=== PATIENT | male | born 1945 | race Caucasian/White ===

== ENCOUNTER 2022-09-03 10:11 | Emergency (ER) | payer MEDICARE ==
[~2022-09-03] VITALS: Ht 177.8 cm; Wt 86.0 kg
[2022-09-03] MEDS ORDERED: BAYER CHEWABLE81 MG PO (10:33)
[2022-09-03] MEDS ORDERED: METOPROLOL SUCC25 MG PO (10:34)
[2022-09-03] MEDS ORDERED: CHLORDIAZEPOXID25 MG PO (15:06)
[2022-09-03 15:20] VITALS: BP 141/99
--- NOTE | 2022-09-03 16:10 | EKG ---
[facility] [address] [facility] [place] [address] Signed Atrial fibrillation with rapid ventricular response Left anterior fascicular block Cannot rule out Inferior infarct (masked by fascicular block?) , age undetermined Abnormal ECG No previous ECGs available Confirmed by Rubén Rutledge MD () on 09/03/2022 4:10:09 PM Electronically Signed By: RUBÉN RUTLEDGE MD 09/03/22 1610 PATIENT NAME: RODRIGUEZ LO Electrocardiogram DATE OF : 49 PHYSICIAN: RUBÉN RUTLEDGE MD REPORT #: [id number] REPORT IS CONFIDENTIAL AND NOT TO BE RELEASED WITHOUT AUTHORIZATION
[2022-09-04] MEDS ORDERED: CHLORDIAZEPOXID25 MG PO (08:51)
[2022-09-04] MEDS ORDERED: MAGNESIUM400 M1 PO (18:37)
[2022-09-04] MEDS ORDERED: MULTIVITAMINS1 EAC8 PO (18:37)
== END 2022-09-03 15:20 | disposition home or self-care (01) ==
LOC: ED 10:11
DX: F10.90 Alcohol use, unspecified, uncomplicated (principal); I48.91 Unspecified atrial fibrillation; Z79.82 Long term (current) use of aspirin; Z79.899 Other long term (current) drug therapy
CPT/HCPCS: 36415; 80053; 81001; 82010; 82803; 85025; 93005; 93010; 96365; 96375; 99284-25; G0480; J2060; J3411

== ENCOUNTER 2022-09-03 19:15 | Emergency (ER) | payer MEDICARE ==
[~2022-09-03] VITALS: Ht 177.8 cm; Wt 86.0 kg
[~2022-09-03 19:15] MED LIST: BAYER CHEWABLE81 MG PO; CHLORDIAZEPOXID25 MG PO; METOPROLOL SUCC25 MG PO
--- OUTSIDE RECORDS SUMMARY | 2022-09-03 19:22 | XMS ---
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 VISIT COUNT (12 MO.) 2 [facility] TOTAL 2 NOTE: Visits indicate total known visits. ED/UCC VISIT TRACKING (12 MO.) 09/03/2022 19:16 [facility] [place] TYPE: Emergency COMPLAINT: - WEAKNESS 09/03/2022 10:11 [facility] [place] TYPE: Emergency COMPLAINT: - WEAKNESS INPATIENT VISIT TRACKING (12 MO.) No inpatient visits to display in this time frame [email or web address]
[2022-09-04] MEDS ORDERED: CHLORDIAZEPOXID25 MG PO (08:51)
[2022-09-04 09:14] VITALS: BP 148/68
--- NOTE | 2022-09-04 15:08 | EKG ---
[facility] [address] [facility] [place] [address] Signed Atrial fibrillation with rapid ventricular response Left anterior fascicular block Cannot rule out Inferior infarct (cited on or before 03-SEP-2022) Abnormal ECG When compared with ECG of 03-SEP-2022 10:26, No significant change was found Confirmed by JAMIE KO MD ([id number]) on 09/04/2022 3:07:42 PM Electronically Signed By: JAMIE KO MD 09/04/22 1508 PATIENT NAME: RODRIGUEZ LO Electrocardiogram DATE OF : 49 PHYSICIAN: JAMIE KO MD REPORT #: [id number] REPORT IS CONFIDENTIAL AND NOT TO BE RELEASED WITHOUT AUTHORIZATION
[2022-09-04] MEDS ORDERED: MULTIVITAMINS1 EAC8 PO (18:37)
[2022-09-04] MEDS ORDERED: MAGNESIUM400 M1 PO (18:37)
== END 2022-09-04 09:10 | disposition home or self-care (01) ==
LOC: ED 19:15
DX: R53.1 Weakness (principal); Z79.82 Long term (current) use of aspirin; Z79.899 Other long term (current) drug therapy
CPT/HCPCS: 36415; 80048; 80053; 81001; 83735; 84484; 85025; 93005; 93010; G0480; J2060; J3475; J7030

== ENCOUNTER 2022-09-04 14:29 | Emergency (ER) | payer MEDICARE ==
[~2022-09-04] VITALS: Ht 177.8 cm; Wt 86.0 kg
--- OUTSIDE RECORDS SUMMARY | 2022-09-04 14:43 | XMS ---
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 VISIT COUNT (12 MO.) [address] [place] [address] TOTAL 3 NOTE: Visits indicate total known visits. ED/UCC VISIT TRACKING (12 MO.) 09/04/2022 14:29 [facility] TYPE: Emergency COMPLAINT: - WEAKNESS 09/03/2022 19:16 [facility] TYPE: Emergency COMPLAINT: - WEAKNESS 09/03/2022 10:11 [facility] TYPE: Emergency COMPLAINT: - WEAKNESS INPATIENT VISIT TRACKING (12 MO.) No inpatient visits to display in this time frame [email or web address]
[2022-09-04] MEDS ORDERED: MULTIVITAMINS1 EAC8 PO (18:37)
[2022-09-04] MEDS ORDERED: MAGNESIUM400 M1 PO (18:37)
[2022-09-04 18:51] VITALS: BP 144/98
--- NOTE | 2022-09-05 23:58 | EKG ---
[facility] [address] [facility] [place], [place] [address] Signed Atrial fibrillation with rapid ventricular response Left axis deviation Inferior infarct (cited on or before 03-SEP-2022) Abnormal ECG When compared with ECG of 03-SEP-2022 20:37, No significant change was found Confirmed by JAMIE KO MD ([id number]) on 09/05/2022 11:58:33 PM Electronically Signed By: JAMIE KO MD 09/05/22 2358 PATIENT NAME: RODRIGUEZ LO Electrocardiogram DATE OF : 49 PHYSICIAN: JAMIE KO MD REPORT #: [id number] REPORT IS CONFIDENTIAL AND NOT TO BE RELEASED WITHOUT AUTHORIZATION
== END 2022-09-04 18:51 | disposition home or self-care (01) ==
LOC: ED 14:29
DX: I48.91 Unspecified atrial fibrillation (principal); F10.939 Alcohol use, unspecified with withdrawal, unspecified; E83.42 Hypomagnesemia; Z79.82 Long term (current) use of aspirin; Z79.899 Other long term (current) drug therapy
CPT/HCPCS: 36415; 80053; 83735; 84484; 85025; 93005; 93010; J2060; J3475; J7030

== ENCOUNTER → 2022-12-21 | Emergency (ER) | payer MEDICARE ==
[~2022-12-21] VITALS: Ht 177.8 cm; Wt 84.2 kg
[~2022-12-21] MED LIST changes: +MAGNESIUM400 M1 PO; +MULTIVITAMINS1 EAC8 PO
--- OUTSIDE RECORDS SUMMARY | ~2022-12-21 | XMS | Continuity of Care Document ---
Demographics + + + | Address | [address] | | | [place] [address] | + + + | Preferred Language | Unknown | + + + | Marital Status | | + + + | Mosque Affiliation | Unknown | + + + | Race | White | + + + | Ethnic Group | Not or | + + + Author + + + | Author | [facility] | + + + | Organization | [facility] | + + + | Address | [address] | | | [place] [address] | + + + | Phone | | + + + Care Team Providers + + + + | [employer] Director Name | Role | Phone | + + + + Unavailable | Unavailable | + + + + Unavailable | Unavailable | + + + + Unavailable | Unavailable | + + + + Unavailable | Unavailable | + + + + Allergies and Intolerances + + + + + + | date | description | facility | reaction | severity | + + + + + + | (no date) | No Known Drug | [facility] | (no reaction) | (no severity) | | | Allergies | | | | + + + + + + Encounters No information. Functional Status No information. Immunizations No information. Medications + + + + | date | description | facility | + + + + | 2022-09-04 00:00 | MAGNESIUM OXIDE | [facility] | + + + + | 2022-09-03 00:00 | ASPIRIN | [facility] | + + + + | 2022-09-04 00:00 | ASPIRIN | [facility] | + + + + | 2022-09-04 00:00 | ASPIRIN | [facility] | + + + + | 2022-09-03 00:00 | METOPROLOL SUCCINATE | [facility] | + + + + | 2022-09-04 00:00 | METOPROLOL SUCCINATE | [facility] | + + + + | 2022-09-04 00:00 | METOPROLOL SUCCINATE | [facility] | + + + + | 2022-09-03 00:00 | CHLORDIAZEPOXIDE HCL | [facility] | + + + + | 2022-09-03 00:00 | CHLORDIAZEPOXIDE HCL | [facility] | + + + + | 2022-09-03 00:00 | CHLORDIAZEPOXIDE HCL | [facility] | + + + + | 2022-09-04 00:00 | CHLORDIAZEPOXIDE HCL | [facility] | + + + + | 2022-09-04 00:00 | CHLORDIAZEPOXIDE HCL | [facility] | + + + + Problems + + + + | date | description | facility | + + + + | 2022-09-03 00:00 | Alcohol use disorder | [facility] | + + + + | 2022-09-03 00:00 | Alcohol use disorder | [facility] | + + + + | 2022-09-03 00:00 | Alcohol use disorder | [facility] | + + + + | 2022-09-03 00:00 | Atrial fibrillation | [facility] | + + + + | 2022-09-03 00:00 | Atrial fibrillation | [facility] | + + + + | 2022-09-03 00:00 | Atrial fibrillation | 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 | + + + + | 2022-09-04 00:00 | Alcohol withdrawal | [facility] | | | syndrome | | + + + + | 2022-09-04 00:00 | Atrial fibrillation with | [facility] | | | rapid ventricular response | | + + + + | 2022-09-04 00:00 | Generalized weakness | [facility] | + + + + | 2022-09-04 00:00 | Generalized weakness | 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 Results/Labs +--------+--------+ +---------+--------+---------+ | test | date | facility | value | unit | notes | +--------+--------+ +---------+--------+---------+ + + | Result panel 1 | + + + + + +--------+ + + | | 2022-09-03 | [facility] | 13.0 | (missing) | (missing) | | (unavailable | [facility] | | | + + + +--------+ + + + + | Result panel 2 | + + + + + +--------+ + + | | 2022-09-03 | [facility] | 75.1 | (missing) | (missing) | | (unavailable | [facility] | | | + + + +--------+ + + + + | Result panel 3 | + + + + + +--------+ + + | | 2022-09-03 | [facility] | 21.0 | (missing) | (missing) | | (unavailable | [facility] | | | + + + +--------+ + + + + | Result panel 4 | + + + + + + + + + | | 2022-09-03 | [facility] | NEGATIVE | (missing) | (missing) | | (unavailable | [facility]:16: [facility] | | | + + + + + + + + + | Result panel 5 | + + + + + +-------+ + + | | 2022-09-03 | [facility] | 3.1 | (missing) | (missing) | | (unavailable | [facility] | | | + + + +-------+ + + + + | Result panel 6 | + + + + + +-------+ + + | | 2022-09-03 | [facility] | 0.2 | (missing) | (missing) | | (unavailable | [facility]16[facility] | | | + + + +-------+ + + + + | Result panel 7 | + + + + + +-------+ + + | | 2022-09-03 | [facility] | 0.6 | (missing) | (missing) | | (unavailable | [facility] | | | + + + +-------+ + + + + | Result panel 8 | + + + + + + + + + | | 2022-09-03 | [facility] | NEGATIVE | (missing) | (missing) | | (unavailable | [facility] | | | + + + + + + + + + | Result panel 9 | + + + + + +--------+ + + | | 2022-09-03 | [facility] | 5.34 | (missing) | (missing) | | (unavailable | [facility] | | | + + + +--------+ + + + + | Result panel 10 | + + + + + +--------+ + + | | 2022-09-03 | [facility] | 17.3 | (missing) | (missing) | | (unavailable | [facility] | | | + + + +--------+ + + + + | Result panel 11 | + + + + + +------+---------+ + | | 2022-09-03 | [facility] | 72 | mg/dL | (missing) | | (unavailable | [facility] | | | + + + +------+---------+ + + + | Result panel 12 | + + + + + +------+---------+ + | | 2022-09-03 | [facility] | 18 | mg/dL | (missing) | | (unavailable | [facility] | | | + + + +------+---------+ + + + | Result panel 13 | + + + + + +--------+---------+ + | | 2022-09-03 | [facility] | 0.98 | mg/dL | (missing) | | (unavailable | [facility] | | | + + + +--------+---------+ + + + | Result panel 14 | + + + + + +--------+ + + | | 2022-09-03 | [facility] | 51.6 | (missing) | (missing) | | (unavailable | [facility] | | | + + + +--------+ + + + + | Result panel 15 | + + + + + +------+ + + | | 2022-09-03 | [facility] | 81 | (missing) | (missing) | | (unavailable | [facility] | | | + + + +------+ + + + + | Result panel 16 | + + + + + +---------+ + + | | 2022-09-03 | [facility] | 18.36 | (missing) | (missing) | | (unavailable | [facility] | | | + + + +---------+ + + + + | Result panel 17 | + + + + + +-------+ + + | | 2022-09-03 | [facility] | 142 | (missing) | (missing) | | (unavailable | [facility] | | | + + + +-------+ + + + + | Result panel 18 | + + + + + +-------+ + + | | 2022-09-03 | [facility] | 3.7 | (missing) | (missing) | | (unavailable | [facility] | | | + + + +-------+ + + + + | Result panel 19 | + + + + + +-------+ + + | | 2022-09-03 | [facility] | 101 | (missing) | (missing) | | (unavailable | [facility] | | | + + + +-------+ + + + + | Result panel 20 | + + + + + +------+ + + | | 2022-09-03 | [facility] | 20 | (missing) | (missing) | | (unavailable | [facility] | | | | + + + +------+ + + + + | Result panel 21 | + + + + + +--------+ + + | | 2022-09-03 | [facility] | 24.7 | (missing) | (missing) | | (unavailable | [facility] | | | + + + +--------+ + + + + | Result panel 22 | + + + + + +-------+---------+ + | | 2022-09-03 | [facility] | 8.6 | mg/dL | (missing) | | (unavailable | [facility] | | | + + + +-------+---------+ + + + | Result panel 23 | + + + + + +-------+ + + | | 2022-09-03 | [facility] | 7.8 | (missing) | (missing) | | (unavailable | [facility] | | | + + + +-------+ + + + + | Result panel 24 | + + + + + +-------+ + + | | 2022-09-03 | [facility] | 3.7 | (missing) | (missing) | | (unavailable | [facility] | | | + + + +-------+ + + + + | Result panel 25 | + + + + + +--------+ + + | | 2022-09-03 | [facility] | 96.7 | (missing) | (missing) | | (unavailable | [facility] | | | + + + +--------+ + + + + | Result panel 26 | + + + + + +-------+ + + | | 2022-09-03 | [facility] | 4.1 | (missing) | (missing) | | (unavailable | [facility] | | | + + + +-------+ + + + + | Result panel 27 | + + + + + +--------+ + + | | 2022-09-03 | [facility] | 0.90 | (missing) | (missing) | | (unavailable | [facility] | | | + + + +--------+ + + + + | Result panel 28 | + + + + + +-------+ + + | | 2022-09-03 | [facility] | 0.6 | (missing) | (missing) | | (unavailable | [facility] | | | + + + +-------+ + + + + | Result panel 29 | + + + + + +------+ + + | | 2022-09-03 | [facility] | 65 | (missing) | (missing) | | (unavailable | [facility] | | | + + + +------+ + + + + | Result panel 30 | + + + + + +------+ + + | | 2022-09-03 | [facility] | 59 | (missing) | (missing) | | (unavailable | [facility] | | | + + + +------+ + + + + | Result panel 31 | + + + + + +------+ + + | | 2022-09-03 | [facility] | 68 | (missing) | (missing) | | (unavailable | [facility] | | | + + + +------+ + + + + | Result panel 32 | + + + + + + + + + | | 2022-09-03 | [facility] | NEGATIVE | (missing) | (missing) | | (unavailable | [facility] | | | + + + + + + + + + | Result panel 33 | + + + + + +-------+ + + | | 2022-09-03 | [facility] | 177 | (missing) | (missing) | | (unavailable | [facility] | | | + + + +-------+ + + + + | Result panel 34 | + + + + + +--------+ + + | | 2022-09-03 | [facility] | 32.3 | (missing) | (missing) | | (unavailable | [facility] | | | + + + +--------+ + + + + | Result panel 35 | + + + + + +--------+ + + | | 2022-09-03 | [facility] | 33.4 | (missing) | (missing) | | (unavailable | [facility] | | | + + + +--------+ + + + + | Result panel 36 | + + + + + +--------+ + + | | 2022-09-03 | [facility] | 15.6 | (missing) | (missing) | | (unavailable | [facility] | | | + + + +--------+ + + + + | Result panel 37 | + + + + + +-------+ + + | | 2022-09-03 | [facility] | 207 | (missing) | (missing) | | (unavailable | [facility] | | | + + + +-------+ + + + + | Result panel 38 | + + + + + +---------+ + + | | 2022-09-03 | [facility] | 7.263 | (missing) | (missing) | | (unavailable | [facility]36[facility]07 [facility] | | | + + + +---------+ + + + + | Result panel 39 | + + + + + +---------+ + + | | 2022-09-03 | [facility] | 7.263 | (missing) | (missing) | | (unavailable | [facility] | | | + + + +---------+ + + + + | Result panel 40 | + + + + + +---------+ + + | | 2022-09-03 | [facility] | 7.263 | (missing) | (missing) | | (unavailable | [facility]36[facility]07 [facility] | | | + + + +---------+ + + + + | Result panel 41 | + + + + + +------+ + + | | 2022-09-03 | [facility] | 73 | (missing) | (missing) | | (unavailable | [facility]38:07 [facility] | | | + + + +------+ + + + + | Result panel 42 | + + + + + +------+ + + | | 2022-09-03 | [facility] | 73 | (missing) | (missing) | | (unavailable | [facility]38:07 [facility] | | | + + + +------+ + + + + | Result panel 43 | + + + + + +------+ + + | | 2022-09-03 | [facility] | 73 | (missing) | (missing) | | (unavailable | [facility]38:07 [facility] | | | + + + +------+ + + + + | Result panel 44 | + + + + + + + + + | | 2022-09-03 | [facility] | CLEAN CATCH | (missing) | (missing) | | (unavailable | [facility]15:07 [facility] | | | + + + + + + + + + | Result panel 45 | + + + + + + + + + | | 2022-09-03 | [facility] | CLEAN CATCH | (missing) | (missing) | | (unavailable | [facility] | | | + + + + + + + + + | Result panel 46 | + + + + + + + + + | | 2022-09-03 | [facility] | YELLOW | (missing) | (missing) | | (unavailable | [facility] | | | + + + + + + + + + | Result panel 47 | + + + + + +---------+ + + | | 2022-09-03 | [facility] | CLEAR | (missing) | (missing) | | (unavailable | [facility]07 [facility] | | | + + + +---------+ + + + + | Result panel 48 | + + + + + + + + + | | 2022-09-03 | [facility] | NEGATIVE | (missing) | (missing) | | (unavailable | [facility] | | | + + + + + + + + + | Result panel 49 | + + + + + + + + + | | 2022-09-03 | [facility] | NEGATIVE | (missing) | (missing) | | (unavailable | [facility] | | | + + + + + + + + + | Result panel 50 | + + + + + +---------+ + + | | 2022-09-03 | [facility] | SMALL | (missing) | (missing) | | (unavailable | [facility]15:07 [facility] | | | + + + +---------+ + + + + | Result panel 51 | + + + + + + + + + | | 2022-09-03 | [facility] | >=1.030 | (missing) | (missing) | | (unavailable | [facility]07 [facility] | | | + + + + + + + + + | Result panel 52 | + + + + + +---------+ + + | | 2022-09-03 | [facility] | SMALL | (missing) | (missing) | | (unavailable | [facility]:07 [facility] | | | + + + +---------+ + + + + | Result panel 53 | + + + + + +-------+ + + | | 2022-09-03 | [facility] | 5.5 | (missing) | (missing) | | (unavailable | [facility]07 [facility] | | | + + + +-------+ + + + + | Result panel 54 | + + + + + +-------+ + + | | 2022-09-03 | [facility] | 100 | (missing) | (missing) | | (unavailable | [facility]:07 [facility] | | | + + + +-------+ + + + + | Result panel 55 | + + + + + + + + + | | 2022-09-03 | [facility] | NORMAL | (missing) | (missing) | | (unavailable | [facility]07 [facility] | | | + + + + + + + + + | Result panel 56 | + + + + + + + + + | | 2022-09-03 | [facility] | NEGATIVE | (missing) | (missing) | | (unavailable | [facility]07 [facility] | | | + + + + + + + + + | Result panel 57 | + + + + + + + + + | | 2022-09-03 | [facility] | NEGATIVE | (missing) | (missing) | | (unavailable | 12::07 [facility] | | | + + + + + + + + + | Result panel 58 | + + + + + +-------+ + + | | 2022-09-03 | [facility] | 2-3 | (missing) | (missing) | | (unavailable | [facility]15:07 [facility] | | | + + + +-------+ + + + + | Result panel 59 | + + + + + +-------+ + + | | 2022-09-03 | [facility] | 0-1 | (missing) | (missing) | | (unavailable | 12::07 [facility] | | | + + + +-------+ + + + + | Result panel 60 | + + + + + +-----+ + + | | 2022-09-03 | [facility] | 0 | (missing) | (missing) | | (unavailable | [facility]15:07 [facility] | | | + + + +-----+ + + + + | Result panel 61 | + + + + + + + + + | | 2022-09-03 | [facility] | NONE SEEN | (missing) | (missing) | | (unavailable | [facility]15[facility]07 [facility] | | | + + + + + + + + + | Result panel 62 | + + + + + +--------+ + + | | 2022-09-03 | [facility] | RARE | (missing) | (missing) | | (unavailable | [facility]:15[facility]07 [facility] | | | + + + +--------+ + + + + | Result panel 63 | + + + + + + + + + | | 2022-09-03 | [facility] | HYALINE 1+ | (missing) | (missing) | | (unavailable | [facility]15:07 [facility] | | | + + + + + + + + + | Result panel 64 | + + + + + +------+ + + | | 2022-09-03 | [facility] | No | (missing) | (missing) | | (unavailable | 12[facility]15:07 [facility] | | | + + + +------+ + + + + | Result panel 65 | + + + + + + + + + | | 2022-09-03 | [facility] | CLEAN CATCH | (missing) | (missing) | | (unavailable | 12:15:07 [facility] | | | + + + + + + + + + | Result panel 66 | + + + + + +-------+ + + | | 2022-09-03 | [facility] | 7.2 | (missing) | (missing) | | (unavailable | 20[facility]45:07 [facility] | | | + + + +-------+ + + + + | Result panel 67 | + + + + + +-------+ + + | | 2022-09-03 | [facility] | 3.3 | (missing) | (missing) | | (unavailable | [facility]45:07 [facility] | | | + + + +-------+ + + + + | Result panel 68 | + + + + + +-------+ + + | | 2022-09-03 | [facility] | 3.9 | (missing) | (missing) | | (unavailable | [facility]45[facility]07 [facility] | | | + + + +-------+ + + + + | Result panel 69 | + + + + + +--------+ + + | | 2022-09-03 | [facility] | 0.85 | (missing) | (missing) | | (unavailable | [facility]45[facility]07 [facility] | | | + + + +--------+ + + + + | Result panel 70 | + + + + + +-------+ + + | | 2022-09-03 | [facility] | 0.9 | (missing) | (missing) | | (unavailable | [facility]07 [facility] | | | + + + +-------+ + + + + | Result panel 71 | + + + + + +------+ + + | | 2022-09-03 | [facility] | 63 | (missing) | (missing) | | (unavailable | [facility]45:07 [facility] | | | + + + +------+ + + + + | Result panel 72 | + + + + + +------+ + + | | 2022-09-03 | [facility] | 55 | (missing) | (missing) | | (unavailable | [facility]45:07 [facility] | | | + + + +------+ + + + + | Result panel 73 | + + + + + +------+ + + | | 2022-09-03 | [facility] | 63 | (missing) | (missing) | | (unavailable | [facility]45:07 [facility] | | | + + + +------+ + + + + | Result panel 74 | + + + + + +--------+ + + | | 2022-09-03 | [facility] | 28.7 | (missing) | (missing) | | (unavailable | [facility]45[facility]07 [facility] | | | + + + +--------+ + + + + | Result panel 75 | + + + + + +------+ + + | | 2022-09-03 | [facility] | <3 | (missing) | (missing) | | (unavailable | [facility]07 [facility] | | | + + + +------+ + + + + | Result panel 76 | + + + + + +------+ + + | | 2022-09-03 | [facility] | <3 | (missing) | (missing) | | (unavailable | [facility]07 [facility] | | | + + + +------+ + + + + | Result panel 77 | + + + + + +--------+ + + | | 2022-09-03 | [facility] | 11.1 | (missing) | (missing) | | (unavailable | [facility]07 [facility] | | | + + + +--------+ + + + + | Result panel 78 | + + + + + +--------+ + + | | 2022-09-03 | [facility] | 4.96 | (missing) | (missing) | | (unavailable | [facility] | | | + + + +--------+ + + + + | Result panel 79 | + + + + + +--------+ + + | | 2022-09-03 | [facility] | 15.8 | (missing) | (missing) | | (unavailable | [facility]07 [facility] | | | + + + +--------+ + + + + | Result panel 80 | + + + + + +--------+ + + | | 2022-09-03 | [facility] | 47.5 | (missing) | (missing) | | (unavailable | [facility]07 [facility] | | | + + + +--------+ + + + + | Result panel 81 | + + + + + +--------+ + + | | 2022-09-03 | [facility] | 95.9 | (missing) | (missing) | | (unavailable | [facility]07 [facility] | | | + + + +--------+ + + + + | Result panel 82 | + + + + + +--------+ + + | | 2022-09-03 | [facility] | 31.8 | (missing) | (missing) | | (unavailable | [facility]07 [facility] | | | + + + +--------+ + + + + | Result panel 83 | + + + + + +--------+ + + | | 2022-09-03 | [facility] | 33.2 | (missing) | (missing) | | (unavailable | [facility]07 [facility] | | | + + + +--------+ + + + + | Result panel 84 | + + + + + +--------+ + + | | 2022-09-03 | [facility] | 15.4 | (missing) | (missing) | | (unavailable | 20:45:07 [facility] | | | | + + + +--------+ + + + + | Result panel 85 | + + + + + +-------+ + + | | 2022-09-03 | [facility] | 175 | (missing) | (missing) | | (unavailable | 20:45:07 [facility] | | | | + + + +-------+ + + + + | Result panel 86 | + + + + + +--------+ + + | | 2022-09-03 | [facility] | 78.9 | (missing) | (missing) | | (unavailable | 20:45:07 [facility] | | | | + + + +--------+ + + + + | Result panel 87 | + + + + + +--------+ + + | | 2022-09-03 | [facility] | 13.7 | (missing) | (missing) | | (unavailable | 20:45:07 [facility] | | | | + + + +--------+ + + + + | Result panel 88 | + + + + + +-------+ + + | | 2022-09-03 | [facility] | 6.4 | (missing) | (missing) | | (unavailable | 20:45:07 [facility] | | | | + + + +-------+ + + + + | Result panel 89 | + + + + + +-------+ + + | | 2022-09-03 | [facility] | 0.7 | (missing) | (missing) | | (unavailable | 20:45:07 [facility] | | | | + + + +-------+ + + + + | Result panel 90 | + + + + + +-------+ + + | | 2022-09-03 | [facility] | 0.3 | (missing) | (missing) | | (unavailable | 20:45:07 [facility] | | | | + + + +-------+ + + + + | Result panel 91 | + + + + + +--------+ + + | | 2022-09-03 | [facility] | RARE | (missing) | (missing) | | (unavailable | 22:37:07 [facility] | | | | + + + +--------+ + + + + | Result panel 92 | + + + + + + + + + | | 2022-09-03 | [facility] | NONE SEEN | (missing) | (missing) | | (unavailable | 22:37:07 [facility] | | | | + + + + + + + + + | Result panel 93 | + + + + + +------+ + + | | 2022-09-03 | [facility] | No | (missing) | (missing) | | (unavailable | 22:37:07 [facility] | | | | + + + +------+ + + + + | Result panel 94 | + + + + + + + + + | | 2022-09-03 | [facility] | NEGATIVE | (missing) | (missing) | | (unavailable | 22:37:07 [facility] | | | | + + + + + + + + + | Result panel 95 | + + + + + + + + + | | 2022-09-03 | [facility] | NEGATIVE | (missing) | (missing) | | (unavailable | 22:37:07 [facility] | | | | + + + + + + + + + | Result panel 96 | + + + + + + + + + | | 2022-09-03 | [facility] | NEGATIVE | (missing) | (missing) | | (unavailable | 22:37:07 [facility] | | | | + + + + + + + + + | Result panel 97 | + + + + + + + + + | | 2022-09-03 | [facility] | POSITIVE | (missing) | (missing) | | (unavailable | 22:37:07 [facility] | | | | + + + + + + + + + | Result panel 98 | + + + + + + + + + | | 2022-09-03 | [facility] | NEGATIVE | (missing) | (missing) | | (unavailable | 22:37:07 [facility] | | | | + + + + + + + + + | Result panel 99 | + + + + + + + + + | | 2022-09-03 | [facility] | NEGATIVE | (missing) | (missing) | | (unavailable | 22:37:07 [facility] | | | | + + + + + + + + + | Result panel 100 | + + + + + + + + + | | 2022-09-03 | [facility] | NEGATIVE | (missing) | (missing) | | (unavailable | 22:37:07 | [facility] | | | | + + + + + + + + + | Result panel 101 | + + + + + + + + + | | 2022-09-03 | [facility] | NEGATIVE | (missing) | (missing) | | (unavailable | [facility]07 [facility] | | | + + + + + + + + + | Result panel 102 | + + + + + + + + + | | 2022-09-03 | [facility] | NEGATIVE | (missing) | (missing) | | (unavailable | [facility] | | | + + + + + + + + + | Result panel 103 | + + + + + + + + + | | 2022-09-03 | [facility] | NEGATIVE | (missing) | (missing) | | (unavailable | [facility] | | | + + + + + + + + + | Result panel 104 | + + + + + + + + + | | 2022-09-03 | [facility] | NEGATIVE | (missing) | (missing) | | (unavailable | [facility] | | | + + + + + + + + + | Result panel 105 | + + + + + + + + + | | 2022-09-03 | [facility] | NEGATIVE | (missing) | (missing) | | (unavailable | [facility] | | | + + + + + + + + + | Result panel 106 | + + + + + + + + + | | 2022-09-03 | [facility] | NEGATIVE | (missing) | (missing) | | (unavailable | [facility] | | | + + + + + + + + + | Result panel 107 | + + + + + + + + + | | 2022-09-03 | [facility] | YELLOW | (missing) | (missing) | | (unavailable | [facility] | | | + + + + + + + + + | Result panel 108 | + + + + + +---------+ + + | | 2022-09-03 | [facility] | CLEAR | (missing) | (missing) | | (unavailable | [facility] | | | + + + +---------+ + + + + | Result panel 109 | + + + + + + + + + | | 2022-09-03 | [facility] | NEGATIVE | (missing) | (missing) | | (unavailable | [facility] | | | + + + + + + + + + | Result panel 110 | + + + + + + + + + | | 2022-09-03 | [facility] | NEGATIVE | (missing) | (missing) | | (unavailable | [facility] | | | + + + + + + + + + | Result panel 111 | + + + + + +---------+ + + | | 2022-09-03 | [facility] | SMALL | (missing) | (missing) | | (unavailable | [facility] | | | + + + +---------+ + + + + | Result panel 112 | + + + + + +---------+ + + | | 2022-09-03 | [facility] | 1.015 | (missing) | (missing) | | (unavailable | [facility] | | | + + + +---------+ + + + + | Result panel 113 | + + + + + + + + + | | 2022-09-03 | [facility] | TRACE-L | (missing) | (missing) | | (unavailable | [facility] | | | + + + + + + + + + | Result panel 114 | + + + + + +-------+ + + | | 2022-09-03 | [facility] | 6.5 | (missing) | (missing) | | (unavailable | [facility] | | | + + + +-------+ + + + + | Result panel 115 | + + + + + + + + + | | 2022-09-03 | [facility] | NEGATIVE | (missing) | (missing) | | (unavailable | [facility] | | | + + + + + + + + + | Result panel 116 | + + + + + + + + + | | 2022-09-03 | [facility] | NORMAL | (missing) | (missing) | | (unavailable | [facility] | | | + + + + + + + + + | Result panel 117 | + + + + + + + + + | | 2022-09-03 | [facility] | NEGATIVE | (missing) | (missing) | | (unavailable | [facility] | | | + + + + + + + + + | Result panel 118 | + + + + + + + + + | | 2022-09-03 | [facility] | NEGATIVE | (missing) | (missing) | | (unavailable | [facility] | | | + + + + + + + + + | Result panel 119 | + + + + + +-------+ + + | | 2022-09-03 | [facility] | 4-6 | (missing) | (missing) | | (unavailable | [facility] | | | + + + +-------+ + + + + | Result panel 120 | + + + + + +-------+ + + | | 2022-09-03 | [facility] | 2-3 | (missing) | (missing) | | (unavailable | [facility] | | | + + + +-------+ + + + + | Result panel 121 | + + + + + + + + + | | 2022-09-03 | [facility] | SQUAMOUS 1+ | (missing) | (missing) | | (unavailable | [facility] | | | + + + + + + + + + | Result panel 122 | + + + + + + + + + | | 2022-09-03 | [facility] | NONE SEEN | (missing) | (missing) | | (unavailable | [facility] | | | + + + + + + + + + | Result panel 123 | + + + + + +--------+ + + | | 2022-09-03 | [facility] | RARE | (missing) | (missing) | | (unavailable | [facility] | | | + + + +--------+ + + + + | Result panel 124 | + + + + + + + + + | | 2022-09-03 | [facility] | NONE SEEN | (missing) | (missing) | | (unavailable | [facility] | | | + + + + + + + + + | Result panel 125 | + + + + + +------+ + + | | 2022-09-03 | [facility] | No | (missing) | (missing) | | (unavailable | [facility] | | | + + + +------+ + + + + | Result panel 126 | + + + + + + + + + | | 2022-09-03 | [facility] | NEGATIVE | (missing) | (missing) | | (unavailable | [facility] | | | + + + + + + + + + | Result panel 127 | + + + + + + + + + | | 2022-09-03 | [facility] | NEGATIVE | (missing) | (missing) | | (unavailable | [facility] | | | + + + + + + + + + | Result panel 128 | + + + + + + + + + | | 2022-09-03 | [facility] | NEGATIVE | (missing) | (missing) | | (unavailable | [facility] | | | + + + + + + + + + | Result panel 129 | + + + + + + + + + | | 2022-09-03 | [facility] | POSITIVE | (missing) | (missing) | | (unavailable | [facility] | | | + + + + + + + + + | Result panel 130 | + + + + + + + + + | | 2022-09-03 | [facility] | NEGATIVE | (missing) | (missing) | | (unavailable | [facility] | | | + + + + + + + + + | Result panel 131 | + + + + + + + + + | | 2022-09-03 | [facility] | NEGATIVE | (missing) | (missing) | | (unavailable | [facility] | | | + + + + + + + + + | Result panel 132 | + + + + + + + + + | | 2022-09-03 | [facility] | NEGATIVE | (missing) | (missing) | | (unavailable | [facility] | | | + + + + + + + + + | Result panel 133 | + + + + + + + + + | | 2022-09-03 | [facility] | NEGATIVE | (missing) | (missing) | | (unavailable | [facility] | | | + + + + + + + + + | Result panel 134 | + + + + + + + + + | | 2022-09-03 | [facility] | NEGATIVE | (missing) | (missing) | | (unavailable | [facility] | | | + + + + + + + + + | Result panel 135 | + + + + + + + + + | | 2022-09-03 | [facility] | NEGATIVE | (missing) | (missing) | | (unavailable | [facility] | | | + + + + + + + + + | Result panel 136 | + + + + + + + + + | | 2022-09-03 | [facility] | NEGATIVE | (missing) | (missing) | | (unavailable | [facility] | | | + + + + + + + + + | Result panel 137 | + + + + + + + + + | | 2022-09-03 | [facility] | NEGATIVE | (missing) | (missing) | | (unavailable | [facility] | | | + + + + + + + + + | Result panel 138 | + + + + + + + + + | | 2022-09-03 | [facility] | NEGATIVE | (missing) | (missing) | | (unavailable | [facility] | | | + + + + + + + + + | Result panel 139 | + + + + + + + + + | | 2022-09-03 | [facility] | YELLOW | (missing) | (missing) | | (unavailable | [facility] | | | + + + + + + + + + | Result panel 140 | + + + + + +---------+ + + | | 2022-09-03 | [facility] | CLEAR | (missing) | (missing) | | (unavailable | [facility] | | | + + + +---------+ + + + + | Result panel 141 | + + + + + + + + + | | 2022-09-03 | [facility] | NEGATIVE | (missing) | (missing) | | (unavailable | [facility] | | | + + + + + + + + + | Result panel 142 | + + + + + + + + + | | 2022-09-03 | [facility] | NEGATIVE | (missing) | (missing) | | (unavailable | [facility] | | | + + + + + + + + + | Result panel 143 | + + + + + +---------+ + + | | 2022-09-03 | [facility] | SMALL | (missing) | (missing) | | (unavailable | [facility] | | | + + + +---------+ + + + + | Result panel 144 | + + + + + +---------+ + + | | 2022-09-03 | [facility] | 1.015 | (missing) | (missing) | | (unavailable | [facility] | | + + + +---------+ + + + + | Result panel 145 | + + + + + + + + + | | 2022-09-03 | [facility] | TRACE-L | (missing) | (missing) | | (unavailable | [facility] | | | + + + + + + + + + | Result panel 146 | + + + + + +-------+ + + | | 2022-09-03 | [facility] | 6.5 | (missing) | (missing) | | (unavailable | [facility] | | | + + + +-------+ + + + + | Result panel 147 | + + + + + + + + + | | 2022-09-03 | [facility] | NEGATIVE | (missing) | (missing) | | (unavailable | [facility] | | | + + + + + + + + + | Result panel 148 | + + + + + + + + + | | 2022-09-03 | [facility] | NORMAL | (missing) | (missing) | | (unavailable | [facility] | | | + + + + + + + + + | Result panel 149 | + + + + + + + + + | | 2022-09-03 | [facility] | NEGATIVE | (missing) | (missing) | | (unavailable | [facility] | | | + + + + + + + + + | Result panel 150 | + + + + + + + + + | | 2022-09-03 | [facility] | NEGATIVE | (missing) | (missing) | | (unavailable | [facility] | | + + + + + + + + + | Result panel 151 | + + + + + +-------+ + + | | 2022-09-03 | [facility] | 4-6 | (missing) | (missing) | | (unavailable | [facility] | | + + + +-------+ + + + + | Result panel 152 | + + + + + +-------+ + + | | 2022-09-03 | [facility] | 2-3 | (missing) | (missing) | | (unavailable | [facility] | | + + + +-------+ + + + + | Result panel 153 | + + + + + + + + + | | 2022-09-03 | [facility] | SQUAMOUS 1+ | (missing) | (missing) | | (unavailable | [facility] | | | + + + + + + + + + | Result panel 154 | + + + + + + + + + | | 2022-09-03 | [facility] | NONE SEEN | (missing) | (missing) | | (unavailable | [facility] | | + + + + + + + + + | Result panel 155 | + + + + + +-------+---------+ + | | 2022-09-04 | [facility] | 101 | mg/dL | (missing) | | (unavailable | 05:13:07 [facility] | | | + + + +-------+---------+ + + + | Result panel 156 | + + + + + +------+---------+ + | | 2022-09-04 | [facility] | 15 | mg/dL | (missing) | | (unavailable | [facility]13:07 [facility] | | + + + +------+---------+ + + + | Result panel 157 | + + + + + +--------+---------+ + | | 2022-09-04 | [facility] | 0.78 | mg/dL | (missing) | | (unavailable | [facility]13:07 [facility] | | + + + +--------+---------+ + + + | Result panel 158 | + + + + + +------+ + + | | 2022-09-04 | [facility] | 94 | (missing) | (missing) | | (unavailable | [facility]13:07 [facility] | | | + + + +------+ + + + + | Result panel 159 | + + + + + +---------+ + + | | 2022-09-04 | [facility] | 19.23 | (missing) | (missing) | | (unavailable | [facility]13:07 [facility] | | + + + +---------+ + + + + | Result panel 160 | + + + + + +-------+ + + | | 2022-09-04 | [facility] | 138 | (missing) | (missing) | | (unavailable | [facility]13:07 [facility] | | | + + + +-------+ + + + + | Result panel 161 | + + + + + +-------+ + + | | 2022-09-04 | [facility] | 3.8 | (missing) | (missing) | | (unavailable | [facility]13:07 [facility] | | | + + + +-------+ + + + + | Result panel 162 | + + + + + +-------+ + + | | 2022-09-04 | [facility] | 101 | (missing) | (missing) | | (unavailable | [facility]13:07 [facility] | | | + + + +-------+ + + + + | Result panel 163 | + + + + + +------+ + + | | 2022-09-04 | [facility] | 28 | (missing) | (missing) | | (unavailable | [facility]13:07 [facility] | | | + + + +------+ + + + + | Result panel 164 | + + + + + +--------+ + + | | 2022-09-04 | [facility] | 12.8 | (missing) | (missing) | | (unavailable | [facility]13:07 [facility] | | + + + +--------+ + + + + | Result panel 165 | + + + + + +-------+---------+ + | | 2022-09-04 | [facility] | 8.2 | mg/dL | (missing) | | (unavailable | [facility]13:07 [facility] | | | + + + +-------+---------+ + + + | Result panel 166 | + + + + + +-------+---------+ + | | 2022-09-04 | [facility] | 1.9 | mg/dL | (missing) | | (unavailable | [facility]13:07 [facility] | | | + + + +-------+---------+ + + + | Result panel 167 | + + + + + +-------+ + + | | 2022-09-04 | [facility] | 9.7 | (missing) | (missing) | | (unavailable | 14[facility]49:07 [facility] | | | + + + +-------+ + + + + | Result panel 168 | + + + + + +--------+ + + | | 2022-09-04 | [facility] | 4.77 | (missing) | (missing) | | (unavailable | [facility]49:07 [facility] | | + + + +--------+ + + + + | Result panel 169 | + + + + + +--------+ + + | | 2022-09-04 | [facility] | 15.2 | (missing) | (missing) | | (unavailable | [facility]49:07 [facility] | | + + + +--------+ + + + + | Result panel 170 | + + + + + +--------+ + + | | 2022-09-04 | [facility] | 45.4 | (missing) | (missing) | | (unavailable | [facility]49:07 [facility] | | + + + +--------+ + + + + | Result panel 171 | + + + + + +--------+ + + | | 2022-09-04 | [facility] | 95.1 | (missing) | (missing) | | (unavailable | [facility]49:07 [facility] | | + + + +--------+ + + + + | Result panel 172 | + + + + + +--------+ + + | | 2022-09-04 | [facility] | 31.8 | (missing) | (missing) | | (unavailable | [facility]49:07 [facility] | | + + + +--------+ + + + + | Result panel 173 | + + + + + +--------+ + + | | 2022-09-04 | [facility] | 33.4 | (missing) | (missing) | | (unavailable | [facility]49:07 [facility] | | + + + +--------+ + + + + | Result panel 174 | + + + + + +--------+ + + | | 2022-09-04 | [facility] | 15.5 | (missing) | (missing) | | (unavailable | [facility]49:07 [facility] | | + + + +--------+ + + + + | Result panel 175 | + + + + + +-------+ + + | | 2022-09-04 | [facility] | 169 | (missing) | (missing) | | (unavailable | [facility]49:07 [facility] | | + + + +-------+ + + + + | Result panel 176 | + + + + + +--------+ + + | | 2022-09-04 | [facility] | 84.5 | (missing) | (missing) | | (unavailable | [facility]49:07 [facility] | | + + + +--------+ + + + + | Result panel 177 | + + + + + +-------+ + + | | 2022-09-04 | [facility] | 8.5 | (missing) | (missing) | | (unavailable | [facility]49[facility]07 [facility] | | + + + +-------+ + + + + | Result panel 178 | + + + + + +-------+ + + | | 2022-09-04 | [facility] | 6.6 | (missing) | (missing) | | (unavailable | [facility]49:07 [facility] | | + + + +-------+ + + + + | Result panel 179 | + + + + + +-------+ + + | | 2022-09-04 | [facility] | 0.2 | (missing) | (missing) | | (unavailable | [facility]49:07 [facility] | | | + + + +-------+ + + + + | Result panel 180 | + + + + + +-------+ + + | | 2022-09-04 | [facility] | 0.2 | (missing) | (missing) | | (unavailable | [facility]49[facility] | | + + + +-------+ + + + + | Result panel 181 | + + + + + +-------+---------+ + | | 2022-09-04 | [facility] | 111 | mg/dL | (missing) | | (unavailable | [facility]:49:07 [facility] | | | + + + +-------+---------+ + + + | Result panel 182 | + + + + + +------+---------+ + | | 2022-09-04 | [facility] | 14 | mg/dL | (missing) | | (unavailable | [facility]:49:07 [facility] | | | + + + +------+---------+ + + + | Result panel 183 | + + + + + +--------+---------+ + | | 2022-09-04 | [facility] | 0.90 | mg/dL | (missing) | | (unavailable | [facility]:49[facility]07 [facility] | | | + + + +--------+---------+ + + + | Result panel 184 | + + + + + +------+ + + | | 2022-09-04 | [facility] | 90 | (missing) | (missing) | | (unavailable | [facility]49:07 [facility] | | | + + + +------+ + + + + | Result panel 185 | + + + + + +---------+ + + | | 2022-09-04 | [facility] | 15.55 | (missing) | (missing) | | (unavailable | [facility]49:07 [facility] | | + + + +---------+ + + + + | Result panel 186 | + + + + + +-------+ + + | | 2022-09-04 | [facility] | 137 | (missing) | (missing) | | (unavailable | [facility]49[facility] | | | + + + +-------+ + + + + | Result panel 187 | + + + + + +-------+ + + | | 2022-09-04 | [facility] | 4.3 | (missing) | (missing) | | (unavailable | [facility]49:07 [facility] | | | + + + +-------+ + + + + | Result panel 188 | + + + + + +-------+ + + | | 2022-09-04 | [facility] | 100 | (missing) | (missing) | | (unavailable | [facility]49:07 [facility] | | | + + + +-------+ + + + + | Result panel 189 | + + + + + +------+ + + | | 2022-09-04 | [facility] | 25 | (missing) | (missing) | | (unavailable | [facility]49:07 [facility] | | | + + + +------+ + + + + | Result panel 190 | + + + + + +--------+ + + | | 2022-09-04 | [facility] | 16.3 | (missing) | (missing) | | (unavailable | [facility]49:07 [facility] | | | + + + +--------+ + + + + | Result panel 191 | + + + + + +-------+---------+ + | | 2022-09-04 | [facility] | 8.5 | mg/dL | (missing) | | (unavailable | [facility]:49:07 [facility] | | | + + + +-------+---------+ + + + | Result panel 192 | + + + + + +-------+---------+ + | | 2022-09-04 | [facility] | 1.6 | mg/dL | (missing) | | (unavailable | [facility]:49:07 [facility] | | | + + + +-------+---------+ + + + | Result panel 193 | + + + + + +-------+ + + | | 2022-09-04 | [facility] | 6.9 | (missing) | (missing) | | (unavailable | [facility]49:[facility] | | | + + + +-------+ + + + + | Result panel 194 | + + + + + +-------+ + + | | 2022-09-04 | [facility] | 3.1 | (missing) | (missing) | | (unavailable | [facility]49[facility] | | | + + + +-------+ + + + + | Result panel 195 | + + + + + +-------+ + + | | 2022-09-04 | [facility] | 3.8 | (missing) | (missing) | | (unavailable | [facility]49[facility]07 [facility] | | | + + + +-------+ + + + + | Result panel 196 | + + + + + +--------+ + + | | 2022-09-04 | [facility] | 0.82 | (missing) | (missing) | | (unavailable | [facility]49:07 [facility] | | | + + + +--------+ + + + + | Result panel 197 | + + + + + +-------+ + + | | 2022-09-04 | [facility] | 1.1 | (missing) | (missing) | | (unavailable | [facility]49:[facility] | | | + + + +-------+ + + + + | Result panel 198 | + + + + + +------+ + + | | 2022-09-04 | [facility] | 60 | (missing) | (missing) | | (unavailable | [facility]49:07 [facility] | | | + + + +------+ + + + + | Result panel 199 | + + + + + +------+ + + | | 2022-09-04 | [facility] | 49 | (missing) | (missing) | | (unavailable | [facility]49:07 [facility] | | | + + + +------+ + + + + | Result panel 200 | + + + + + +------+ + + | | 2022-09-04 | [facility] | 63 | (missing) | (missing) | | (unavailable | [facility]07 [facility] | | | + + + +------+ + + + + | Result panel 201 | + + + + + +--------+ + + | | 2022-09-04 | [facility] | 25.0 | (missing) | (missing) | | (unavailable | [facility] | | | + + + +--------+ + + Social History + + + + | date | description | facility | + + + + | 2022-09-03 00:00 | Unknown if ever smoked | [facility] | + + + + | 2022-09-04 00:00 | Unknown if ever smoked | [facility] | + + + + | 2022-09-04 00:00 | Unknown if ever smoked | [facility] | + + + + Vital Signs + + + +---------+ | date | measurement | value | units | + + + +---------+ | 2022-09-03 00:00 | BMI | 27.2 | kg/m2 | + + + +---------+ | 2022-09-03 00:00 | BP_diastolic | 99 | mmHg | + + + +---------+ | 2022-09-03 00:00 | BP_systolic | 141 | mmHg | + + + +---------+ | 2022-09-03 00:00 | heart_rate | 99 | /min | + + + +---------+ | 2022-09-03 00:00 | height_metric | 177.8 | cm | + + + +---------+ | 2022-09-03 00:00 | height_standard | 70 | in | + + + +---------+ | 2022-09-03 00:00 | o2_saturation | 94 | % | + + + +---------+ | 2022-09-03 00:00 | respiration_rate | 15 | /min | + + + +---------+ | 2022-09-03 00:00 | temperature_metric | 36.94 | C | | | | | | + + + +---------+ | 2022-09-03 00:00 | | 98.5 | F | | | temperature_standar | | | | | d | | | + + + +---------+ | 2022-09-03 00:00 | weight_metric | 85.98 | kg | + + + +---------+ | 2022-09-03 00:00 | weight_metric | 86 | kg | + + + +---------+ | 2022-09-03 00:00 | weight_standard | 189.55 | lb | + + + +---------+ | 2022-09-03 00:00 | weight_standard | 189.56 | lb | + + + +---------+ | 2022-09-03 00:00 | weight_standard | 189.6 | lb | + + + +---------+ | 2022-09-04 00:00 | BMI | 27.2 | kg/m2 | + + + +---------+ | 2022-09-04 00:00 | BP_diastolic | 68 | mmHg | + + + +---------+ | 2022-09-04 00:00 | BP_diastolic | 98 | mmHg | + + + +---------+ | 2022-09-04 00:00 | BP_systolic | 144 | mmHg | + + + +---------+ | 2022-09-04 00:00 | BP_systolic | 148 | mmHg | + + + +---------+ | 2022-09-04 00:00 | heart_rate | 68 | /min | + + + +---------+ | 2022-09-04 00:00 | heart_rate | 83 | /min | + + + +---------+ | 2022-09-04 00:00 | height_metric | 177.8 | cm | + + + +---------+ | 2022-09-04 00:00 | height_standard | 70 | in | + + + +---------+ | 2022-09-04 00:00 | o2_saturation | 94 | % | + + + +---------+ | 2022-09-04 00:00 | o2_saturation | 95 | % | + + + +---------+ | 2022-09-04 00:00 | respiration_rate | 16 | /min | + + + +---------+ | 2022-09-04 00:00 | respiration_rate | 18 | /min | + + + +---------+ | 2022-09-04 00:00 | temperature_metric | 37.06 | C | | | | | | + + + +---------+ | 2022-09-04 00:00 | temperature_metric | 37.11 | C | | | | | | + + + +---------+ | 2022-09-04 00:00 | | 98.7 | F | | | temperature_standar | | | | | d | | | + + + +---------+ | 2022-09-04 00:00 | | 98.8 | F | | | temperature_standar | | | | | d | | | + + + +---------+ | 2022-09-04 00:00 | weight_metric | 85.98 | kg | + + + +---------+ | 2022-09-04 00:00 | weight_standard | 189.55 | lb | + + + +---------+ | 2022-09-04 00:00 | weight_standard | 189.56 | lb | + + + +---------+"
--- OUTSIDE RECORDS SUMMARY | ~2022-12-21 | XMS | Continuity of Care Document ---
Demographics + + + | Address | [address] | | | [place] [address] | + + + | Preferred Language | Unknown | + + + | Marital Status | | + + + | Jehovah'S Witness Affiliation | Unknown | + + + | Race | White | + + + | Ethnic Group | Not or | + + + Author + + + | Author | [facility] | + + + | Organization | [facility] | + + + | Address | [address] [facility] | | | [place] [address] | + + + | Phone | | + + + Care Team Providers + + + + | Care Audiovisual Tech Name | Role | Phone | + [...] | 2022-09-04 00:00 | MAGNESIUM OXIDE | [facility] | + + + + | 2022-09-03 00:00 | ASPIRIN | [facility] | + + + + | 2022-09-04 00:00 | ASPIRIN | [facility] | + + + + | 2022-09-04 00:00 | ASPIRIN | [facility] | + + + + | 2022-09-03 00:00 | METOPROLOL SUCCINATE | [facility] | + + + + | 2022-09-04 00:00 | METOPROLOL SUCCINATE | [facility] | + + + + | 2022-09-04 00:00 | METOPROLOL SUCCINATE | [facility] | + + + + | 2022-09-03 00:00 | CHLORDIAZEPOXIDE HCL | [facility] | + + + + | 2022-09-03 00:00 | CHLORDIAZEPOXIDE HCL | [facility] | + + + + | 2022-09-03 00:00 | CHLORDIAZEPOXIDE HCL | [facility] | + + + + | 2022-09-04 00:00 | CHLORDIAZEPOXIDE HCL | [facility] | + + + + | 2022-09-04 00:00 | CHLORDIAZEPOXIDE HCL | [facility] | + + + + Problems + + + + | date | description | facility | + + + + | 2022-09-03 00:00 | Alcohol use disorder | [facility] | + + + + | 2022-09-03 00:00 | Alcohol use disorder | [facility] | + + + + | 2022-09-03 00:00 | Alcohol use disorder | [facility] | + + + + | 2022-09-03 00:00 | Atrial fibrillation | [facility] | + + + + | 2022-09-03 00:00 | Atrial fibrillation | [facility] | + + + + | 2022-09-03 00:00 | Atrial fibrillation | [facility] | + + + + | 2022-09-03 10:11 | ALCOHOL USE, UNSPECIFIED, | [facility] | | | UNCOMPLICATED | | + + + + | 2022-09-03 10:11 | UNSPECIFIED ATRIAL | [facility] | | | FIBRILLATION | | + + + + | 2022-09-03 10:11 | WEAKNESS | [facility] | + + + + | 2022-09-03 10:11 | 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[facility] | | | 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 | | + + + + | 2022-09-03 10:11 | 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) | [facility] | | | DRUG THERAPY | | + + + + | 2022-09-03 19:16 | WEAKNESS | [facility] | + + + + | 2022-09-03 19:16 | 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[facility] | | | 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 | | + + + + | 2022-09-03 19:16 | 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) | [facility] | | | DRUG THERAPY | | + + + + | 2022-09-04 00:00 | Hypomagnesemia | [facility] | + + + + | 2022-09-04 00:00 | Alcohol withdrawal | [facility] | | | syndrome | | + + + + | 2022-09-04 00:00 | Atrial fibrillation with | [facility] | | | rapid ventricular response | | + + + + | 2022-09-04 00:00 | Generalized weakness | [facility] | + + + + | 2022-09-04 00:00 | Generalized weakness | [facility] | + + + + | 2022-09-04 14:29 | HYPOMAGNESEMIA | [facility] | + + + + | 2022-09-04 14:29 | UNSPECIFIED ATRIAL | [facility] | | | FIBRILLATION | | + + + + | 2022-09-04 14:29 | WEAKNESS | [facility] | + + + + | 2022-09-04 14:29 | CORRECTION (CURRENT) USE OF | [facility] | | | ASPIRIN | | + + + + | 2022-09-04 14:29 | OTHER CORRECTION (CURRENT) | [facility] | | | DRUG [...] (missing) | | (unavailable | 20:45:07 | Ante | | | | | ) | [...] 00:00 | Unknown if ever smoked | [facility] | + + + + | 2022-09-04 00:00 | Unknown if ever smoked | [facility] | + + + + | 2022-09-04 00:00 | Unknown if ever smoked | [facility] | + + + + Vital Signs [...]
[2022-12-21 22:10] LABS: INR 0.95 (0.80-1.30); PROTIME 12.2 Sec (11.2-14.2)
[2022-12-21 22:14] LABS: BASOPHILS 0.4 % (0-2); EOSINOPHILS 2.7 % (0-6); HEMATOCRIT 48.1 % (35.0-50.0); HEMOGLOBIN 16.4 g/dL (12.0-18.0); LYMPHOCYTES 28.1 % (24-44); MCH 34.4 (27-36); MCV 101.1 fl (81-99); MONOCYTES 5.8 % (0-12); PLATELET COUNT 164 K/uL (140-440); RBC 4.76 M/ul (4.3-5.7); RDW 16.1 (10.5-15.0)
[2022-12-21 22:29] LABS: ALBUMIN 3.6 g/dL (3.4-5.0); ALBUMIN/GLOBULIN RATIO 0.95 (1.1-2.4); ANION GAP 22.5 (7-21); BILIRUBIN, TOTAL 0.6 ng/dL (0.2-1.0); BUN/CREATININE RATIO 28.94 (6.0-28.6); CALCIUM 8.7 mg/dL (8.5-10.1); CREATININE, SERUM 0.76 mg/dL (0.70-1.30); POTASSIUM 3.5 mmol/L (3.5-5.1); PROTEIN, TOTAL 7.4 g/dL (6.4-8.2)
[2022-12-22 00:29] VITALS: BP 121/87
== END ==
LOC: ED 21:44
PROVIDERS: Family Medicine
DX: F10.10 Alcohol abuse, uncomplicated (principal); I10 Essential (primary) hypertension; Z79.82 Long term (current) use of aspirin
CPT/HCPCS: 36415; 80053; 85025; 85610; G0480; J2060; J3411; J7030

== ENCOUNTER 2023-01-26 00:03 | Emergency (ER) | payer MEDICARE ==
[~2023-01-26] VITALS: Ht 177.8 cm; Wt 84.2 kg
[2023-01-26 03:14] VITALS: BP 151/101
== END 2023-01-26 03:15 | disposition home or self-care (01) ==
LOC: ED 00:03
DX: F10.10 Alcohol abuse, uncomplicated (principal); I48.91 Unspecified atrial fibrillation; I10 Essential (primary) hypertension; Z79.899 Other long term (current) drug therapy; Z79.82 Long term (current) use of aspirin
CPT/HCPCS: 99284

== ENCOUNTER 2023-01-28 03:32 | Emergency (ER) | payer MEDICARE ==
[~2023-01-28] VITALS: Ht 177.8 cm; Wt 83.9 kg
--- OUTSIDE RECORDS SUMMARY | 2023-01-28 03:37 | XMS ---
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 VISIT COUNT (12 MO.) [address] [place] [address] TOTAL 6 NOTE: Visits indicate total known visits. ED/UCC VISIT TRACKING (12 MO.) 01/28/2023 03:33 [facility] [place] TYPE: Emergency COMPLAINT: - ABDOMINAL PAIN 01/26/2023 00:03 [facility] [place] TYPE: Emergency COMPLAINT: - WEAKNESS 12/21/2022 21:45 [facility] [place] TYPE: Emergency COMPLAINT: - DIZZINESS DIAGNOSES: - Alcohol abuse, uncomplicated - Essential (primary) hypertension - jail (current) use of aspirin 09/04/2022 14:29 [facility] [place] TYPE: Emergency COMPLAINT: - WEAKNESS DIAGNOSES: - Alcohol use, unspecified with withdrawal, unspecified - Hypomagnesemia - jail (current) use of aspirin - Other detention (current) drug therapy - Unspecified atrial fibrillation - Weakness 09/03/2022 19:16 [facility] [place] TYPE: Emergency COMPLAINT: - WEAKNESS DIAGNOSES: - jail (current) use of aspirin - Other medical terminologist (current) drug therapy - Weakness 09/03/2022 10:11 [facility] [place] TYPE: Emergency COMPLAINT: - WEAKNESS DIAGNOSES: - Alcohol use, unspecified, uncomplicated - jail (current) use of aspirin - Other medical terminologist (current) drug therapy - Unspecified atrial fibrillation - Weakness INPATIENT VISIT TRACKING (12 MO.) No inpatient visits to display in this time frame [email or web address]
[2023-01-28 04:33] VITALS: BP 142/85
== END 2023-01-28 04:03 | disposition home or self-care (01) ==
LOC: ED 03:32
DX: F10.10 Alcohol abuse, uncomplicated (principal); I10 Essential (primary) hypertension; Z79.899 Other long term (current) drug therapy; Z79.82 Long term (current) use of aspirin
CPT/HCPCS: 99284

== ENCOUNTER 2023-04-13 06:48 | Emergency (ER) | payer MEDICARE ==
[~2023-04-13] VITALS: Ht 177.8 cm; Wt 86.6 kg
[~2023-04-13 06:48] MED LIST changes: +ONDANSETRON ODT8 MG PO
--- OUTSIDE RECORDS SUMMARY | 2023-04-13 06:54 | XMS ---
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 VISIT COUNT (12 MO.) [address] [place] [address] TOTAL 10 NOTE: Visits indicate total known visits. ED/UCC VISIT TRACKING (12 MO.) 04/13/2023 06:[address] [facility] [address] [facility] [place] TYPE: Emergency COMPLAINT: - INTOXICATION 04/11/2023 11:21 [facility] [place] TYPE: Emergency COMPLAINT: - MEDICAL CLEARANCE FOR DETOX 04/10/2023 12:[address] [facility] [address] [place] TYPE: Emergency COMPLAINT: - WITHDRAWS DIAGNOSES: - Alcohol use, unspecified, uncomplicated - Allergy status to other antibiotic agents - Essential (primary) hypertension - longterm (current) use of aspirin - Nausea 02/02/2023 11:[address] [facility] [address] [place] TYPE: Emergency COMPLAINT: - CHEST PAIN DIAGNOSES: - Epigastric pain - Essential (primary) hypertension - longterm (current) use of aspirin - Other chest pain - Unspecified atrial fibrillation 01/28/2023 03:[address] [facility] [address] [place] TYPE: Emergency COMPLAINT: - ABDOMINAL PAIN DIAGNOSES: - Alcohol abuse, uncomplicated - Essential (primary) hypertension - microeconomics professor (current) use of aspirin - Nausea - Other administrative support coordinator (current) drug therapy 01/26/2023 00:[address] [facility] [address] [place] TYPE: Emergency COMPLAINT: - WEAKNESS DIAGNOSES: - Alcohol abuse, uncomplicated - Essential (primary) hypertension - longterm (current) use of aspirin - Other [facility] (current) drug therapy - Unspecified atrial fibrillation - Weakness 12/21/2022 21:45 [facility] [place] TYPE: Emergency COMPLAINT: - DIZZINESS DIAGNOSES: - Alcohol abuse, uncomplicated - Essential (primary) hypertension - microeconomics professor (current) use of aspirin 09/04/2022 14:29 [facility] [place] TYPE: Emergency COMPLAINT: - WEAKNESS DIAGNOSES: - Alcohol use, unspecified with withdrawal, unspecified - Hypomagnesemia - longterm (current) use of aspirin - Other mcc (current) drug therapy - Unspecified atrial fibrillation - Weakness 09/03/2022 19:16 [facility] [place] TYPE: Emergency COMPLAINT: - WEAKNESS DIAGNOSES: - microeconomics professor (current) 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
[2023-04-13 07:11] LABS: BASOPHILS 0.7 % (0-2); EOSINOPHILS 0.9 % (0-6); HEMATOCRIT 51.3 % (35.0-50.0); HEMOGLOBIN 17.1 g/dL (12.0-18.0); LYMPHOCYTES 26.9 % (24-44); MCH 33.8 (27-36); MCHC 33.4 g/dl (30-36); MONOCYTES 5.6 % (0-12); NEUTROPHILS 65.9 % (39-80); PLATELET COUNT 144 K/uL (140-440); RBC 5.07 M/ul (4.3-5.7); RDW 17.7 (10.5-15.0)
[2023-04-13 07:26] LABS: ALBUMIN 3.6 g/dL (3.4-5.0); ALBUMIN/GLOBULIN RATIO 0.9 (1.1-2.4); ANION GAP 23.1 (7-21); BILIRUBIN, TOTAL 0.8 ng/dL (0.2-1.0); BUN/CREATININE RATIO 17.58 (6.0-28.6); CALCIUM 8.9 mg/dL (8.5-10.1); CREATININE, SERUM 0.91 mg/dL (0.70-1.30); POTASSIUM 4.1 mmol/L (3.5-5.1); PROTEIN, TOTAL 7.6 g/dL (6.4-8.2)
[2023-04-13] MEDS ORDERED: CHLORDIAZEPOXID25 MG PO (10:49)
[2023-04-13 11:02] VITALS: BP 140/78
[2023-04-14] MEDS ORDERED: ONDANSETRON ODT8 MG PO (15:48)
[2023-04-14] MEDS ORDERED: CHLORDIAZEPOXID25 MG PO (16:34)
== END 2023-04-13 11:04 | disposition home or self-care (01) ==
LOC: ED 06:48
PROVIDERS: Family Medicine
DX: F10.10 Alcohol abuse, uncomplicated (principal); I10 Essential (primary) hypertension; Z88.5 Allergy status to narcotic agent; Z88.1 Allergy status to other antibiotic agents; Z79.82 Long term (current) use of aspirin
CPT/HCPCS: 36415; 80053; 80307; 83735; 85025; 96365; 96375; 99284-25; G0480; J2060; J3475; J7040

== ENCOUNTER 2023-05-03 00:57 | Emergency (ER) | payer MEDICARE ==
[~2023-05-03] VITALS: Ht 177.8 cm; Wt 86.8 kg
--- OUTSIDE RECORDS SUMMARY | 2023-05-03 01:05 | XMS ---
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 VISIT COUNT (12 MO.) [address] [place] [address] TOTAL 12 NOTE: Visits indicate total known visits. ED/UCC VISIT TRACKING (12 MO.) 05/03/2023 00:58 [facility] [place] TYPE: Emergency COMPLAINT: - FALL 04/14/2023 12:18 [facility] [place] TYPE: Emergency COMPLAINT: - WEAKNESS 04/13/2023 06:48 [facility] [place] TYPE: Emergency COMPLAINT: - INTOXICATION DIAGNOSES: - Alcohol abuse, uncomplicated - Allergy status to narcotic agent - Allergy status to other antibiotic agents - Essential (primary) hypertension - senior living (current) use of aspirin 04/11/2023 11:21 [facility] [place] TYPE: Emergency COMPLAINT: - MEDICAL CLEARANCE FOR DETOX 04/10/2023 12:59 [facility] [place] TYPE: Emergency COMPLAINT: - WITHDRAWS DIAGNOSES: - Alcohol use, unspecified, uncomplicated - Allergy status to other antibiotic agents - Essential (primary) hypertension - senior living (current) use of aspirin - Nausea 02/02/2023 11:02 [facility] [place] TYPE: Emergency COMPLAINT: - CHEST PAIN DIAGNOSES: - Epigastric pain - Essential (primary) hypertension - senior living (current) use of aspirin - Other chest pain - Unspecified atrial fibrillation 01/28/2023 03:33 [facility] [place] TYPE: Emergency COMPLAINT: - ABDOMINAL PAIN DIAGNOSES: - Alcohol abuse, uncomplicated - Essential (primary) hypertension - senior living (current) use of aspirin - Nausea - Other intermission coordinator (current) drug therapy [facility] COMPLAINT: - WEAKNESS DIAGNOSES: - Alcohol abuse, uncomplicated - Essential (primary) hypertension - remote computer terminal operator (current) use of aspirin - Other mcc (current) drug therapy - Unspecified atrial fibrillation - Weakness 12/21/2022 21:[address] [facility] [place] TYPE: Emergency COMPLAINT: - DIZZINESS DIAGNOSES: - Alcohol abuse, uncomplicated - Essential (primary) hypertension - senior living (current) use of aspirin 09/04/2022 14:29 [facility] [place] TYPE: Emergency COMPLAINT: - WEAKNESS DIAGNOSES: - Alcohol use, unspecified with withdrawal, unspecified - Hypomagnesemia - remote computer terminal operator (current) use of aspirin - Other mcc (current) drug therapy - Unspecified atrial fibrillation - Weakness 09/03/2022 19:16 [facility] [place] TYPE: Emergency COMPLAINT: - WEAKNESS DIAGNOSES: - senior living (current) use of aspirin - Other intermission coordinator (current) drug therapy - Weakness 09/03/2022 10:11 [facility] [place] TYPE: Emergency COMPLAINT: - WEAKNESS DIAGNOSES: - Alcohol use, unspecified, uncomplicated - remote computer terminal operator (current) use of aspirin - Other mcc (current) drug therapy - Unspecified atrial fibrillation - Weakness INPATIENT VISIT TRACKING (12 MO.) No inpatient visits to display in this time frame [id number]
[2023-05-03 06:38] VITALS: BP 133/79
== END 2023-05-03 06:39 | disposition home or self-care (01) ==
LOC: ED 00:57
DX: S51.812A Laceration without foreign body of left forearm, initial encounter (principal); I48.0 Paroxysmal atrial fibrillation; I10 Essential (primary) hypertension; W22.09XA Striking against other stationary object, initial encounter; W18.30XA Fall on same level, unspecified, initial encounter; Z88.1 Allergy status to other antibiotic agents; Z88.5 Allergy status to narcotic agent; Z79.82 Long term (current) use of aspirin; Z79.899 Other long term (current) drug therapy
CPT/HCPCS: 12002; 99283

== ENCOUNTER 2023-05-06 09:09 | Emergency (ER) | payer MEDICARE ==
[~2023-05-06] VITALS: Ht 177.8 cm; Wt 84.9 kg
[2023-05-06] MEDS ORDERED: TRAZODONE HCL100 MG PO (09:18)
[2023-05-06 09:25] LABS: BASOPHILS 0.7 % (0-2); HEMATOCRIT 42.6 % (35.0-50.0); HEMOGLOBIN 14.5 g/dL (12.0-18.0); LYMPHOCYTES 29.5 % (24-44); MCH 33.9 (27-36); MCV 99.7 fl (81-99); MONOCYTES 8.2 % (0-12); NEUTROPHILS 57.6 % (39-80); PLATELET COUNT 216 K/uL (140-440); RBC 4.27 M/ul (4.3-5.7); RDW 16.5 (10.5-15.0)
[2023-05-06 10:14] LABS: ALBUMIN 3.2 g/dL (3.4-5.0); ALBUMIN/GLOBULIN RATIO 0.78 (1.1-2.4); ANION GAP 15.1 (7-21); BILIRUBIN, TOTAL 0.6 ng/dL (0.2-1.0); BUN/CREATININE RATIO 16.07 (6.0-28.6); CALCIUM 9.6 mg/dL (8.5-10.1); CREATININE, SERUM 1.12 mg/dL (0.70-1.30); POTASSIUM 4.1 mmol/L (3.5-5.1); PROTEIN, TOTAL 7.3 g/dL (6.4-8.2)
--- OUTSIDE RECORDS SUMMARY | 2023-05-06 10:54 | XMS ---
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 VISIT COUNT (12 MO.) [address] [place] [address] TOTAL 13 NOTE: Visits indicate total known visits. ED/UCC VISIT TRACKING (12 MO.) 05/06/2023 09:10 [facility] [place] TYPE: Emergency COMPLAINT: - DISORIENTED, WEAKNESS 05/03/2023 00:58 [facility] [place] TYPE: Emergency COMPLAINT: - FALL 04/14/2023 12:18 [facility] [place] TYPE: Emergency COMPLAINT: - WEAKNESS 04/13/2023 06:48 [facility] [place] TYPE: Emergency COMPLAINT: - INTOXICATION DIAGNOSES: - Alcohol abuse, uncomplicated - Allergy status to narcotic agent - Allergy status to other antibiotic agents - Essential (primary) hypertension - termination clerk (current) use of aspirin 04/11/2023 11:21 [facility] [place] TYPE: Emergency COMPLAINT: - MEDICAL CLEARANCE FOR DETOX 04/10/2023 12:59 [facility] [place] TYPE: Emergency COMPLAINT: - WITHDRAWS DIAGNOSES: - Alcohol use, unspecified, uncomplicated - Allergy status to other antibiotic agents - Essential (primary) hypertension - long-term (current) use of aspirin - Nausea 02/02/2023 11:02 [facility] [place] TYPE: Emergency COMPLAINT: - CHEST PAIN DIAGNOSES: - Epigastric pain - Essential (primary) hypertension - long-term (current) use of aspirin - Other chest pain - Unspecified atrial fibrillation 01/28/2023 03:33 [facility] [place] TYPE: Emergency COMPLAINT: - ABDOMINAL PAIN DIAGNOSES: - Alcohol abuse, uncomplicated - Essential (primary) hypertension - termination clerk (current) use of aspirin - Nausea - Other rodent exterminator (current) drug therapy [facility]23 [facility] [place] [facility] COMPLAINT: - WEAKNESS DIAGNOSES: - Alcohol abuse, uncomplicated - Essential (primary) hypertension - long-term (current) use of aspirin - Other detention (current) drug therapy - Unspecified atrial fibrillation - Weakness 12/21/2022 21:45 [facility] [place] TYPE: Emergency COMPLAINT: - DIZZINESS DIAGNOSES: - Alcohol abuse, uncomplicated - Essential (primary) hypertension - termination clerk (current) use of aspirin 09/04/2022 14:29 [facility] [place] TYPE: Emergency COMPLAINT: - WEAKNESS DIAGNOSES: - Alcohol use, unspecified with withdrawal, unspecified - Hypomagnesemia - long-term (current) use of aspirin - Other rodent exterminator (current) drug therapy - Unspecified atrial fibrillation - Weakness 09/03/2022 19:16 [facility] [place] TYPE: Emergency COMPLAINT: - WEAKNESS DIAGNOSES: - termination clerk (current) use of aspirin - Other detention (current) drug therapy - Weakness 09/03/2022 10:11 [facility] [place] TYPE: Emergency COMPLAINT: - WEAKNESS DIAGNOSES: - Alcohol use, unspecified, uncomplicated - long-term (current) use of aspirin - Other rodent exterminator (current) drug therapy - Unspecified atrial fibrillation - Weakness INPATIENT VISIT TRACKING (12 MO.) No inpatient visits to display in this time frame [id number]
[2023-05-06 13:44] VITALS: BP 124/95
== END 2023-05-06 13:45 | disposition home or self-care (01) ==
LOC: ED 09:09
PROVIDERS: Emergency Medicine
DX: R53.1 Weakness (principal); F10.20 Alcohol dependence, uncomplicated; I48.91 Unspecified atrial fibrillation; I10 Essential (primary) hypertension; Z88.5 Allergy status to narcotic agent; Z88.1 Allergy status to other antibiotic agents; Z79.82 Long term (current) use of aspirin; Z79.899 Other long term (current) drug therapy
CPT/HCPCS: 36415; 80053; 83735; 85025; 96360; 99283-25; J7040